=== PATIENT | male | born 1995 | race Hispanic/Latino ===

== ENCOUNTER 2017-11-18 22:48 | Emergency (ER) | payer OTHER ==
[2017-11-18 23:18] VITALS: RESP 18
--- NOTE | 2017-11-18 23:31 | ED PDOC ---
HPI: Chest Pain Time Seen by Provider: 11/18/17 23:03 Chief Complaint (Nursing): Chest Pain History Per: Patient History/Exam Limitations: no limitations Onset/Duration Of Symptoms: Days (7 days, 4 episodes) Current Symptoms Are (Timing): Intermittent Episodes Severity: Moderate Quality: Tightness Associated Symptoms: Diaphoresis, Other (dizziness). denies: Nausea, Syncope Exacerbating Factors: None Alleviating Factors: Rest Additional Complaint(s): 22-year-old male with no pertinent PMH presents with a 1 week history of intermittent palpitations and dizziness. He states the episodes are random but when he feels the palpitations start he gets nervous and the symptoms get worse. He has had 4 episodes of palpitations associated with dizziness and diaphoresis. Nothing aggravates or alleviates the episodes; they self resolve. He denies drugs, caffeine, alcohol, loss of consciousness, change in vision, nausea, vomiting, constipation, diarrhea, weight loss, change in diet or fluid intake, and any recent illness. PCP: None PMHx: Chronic nose bleeds SHx: None Social: Denies alcohol, illicit drugs, prescription drugs, and tobacco Meds: None Allergies: None FHx: Father: HTN, Mother: Hypotension Past Medical History Vital Signs: Last Vital Signs Temp 97.9 F 11/18/17 23:07 Pulse 74 11/18/17 23:07 Resp 18 11/18/17 23:07 BP 127/62 11/18/17 23:07 Pulse Ox 98 11/18/17 23:07 - Medical History PMH: No Chronic Diseases - Surgical History Surgical History: No Surg Hx - Family History Family History: States: Hypertension (father) - Social History Current smoker - smoking cessation education provided: No Alcohol: None Drugs: Denies - Home Medications Home Medications: Ambulatory Orders Medication Instructions Recorded RX: No Known Home Med 01/08/16 - Allergies Allergies/Adverse Reactions: Allergies Allergy/AdvReac Type Severity Reaction Status Date / Time No Known Allergies Allergy Verified 11/18/17 23:07 Review of Systems Constitutional: Positive for: Sweats. Negative for: Fever, Chills, Weakness, Weight loss Eyes: Negative for: Vision Change Cardiovascular: Positive for: Palpitations, Light Headedness. Negative for: Orthopnea, Edema Respiratory: Negative for: Cough, Shortness of Breath Gastrointestinal: Negative for: Nausea, Vomiting Genitourinary Male: Negative for: Dysuria, Frequency, Incontinence, Hematuria Musculoskeletal: Negative for: Neck Pain Skin: Negative for: Rash, Lesions Psych: Positive for: Anxiety Physical Exam - Physical Exam Appears: Positive for: Well, Non-toxic, No Acute Distress Head Exam: Positive for: ATRAUMATIC Skin: Positive for: Normal Color Neck: Positive for: Normal, Painless ROM Cardiovascular/Chest: Positive for: Regular Rate, Rhythm, Chest Non Tender Respiratory: Positive for: Normal Breath Sounds. Negative for: Wheezing, Respiratory Distress Extremity: Positive for: Normal ROM. Negative for: Tenderness Neurologic/Psych: Positive for: Alert, Oriented - Laboratory Results Result Diagrams: 11/19/17 00:09 11/19/17 00:09 - ECG ECG: Positive for: Interpreted By Me ECG Rhythm: Positive for: Normal QRS, Normal ST Segment O2 Sat by Pulse Oximetry: 98 - Progress ED Course And Treament: 22-year-old male with no pertinent PMH presents with a 1 week history of intermittent palpitations and dizziness. EKG, CBC, CMP, TSH, T4, Troponin all WNL. Patient cleared to return to home and recommend follow up with [facility] within 1 week. Disposition - Clinical Impression Clinical Impression: Anxiety - Patient ED Disposition Is Patient to be Admitted: No - Disposition Referrals: [facility] [place] [Outside] [facility] [Provider Group] Disposition Time: 01:22 Condition: IMPROVED Additional Instructions: Follow up with [facility] within 1 week. Forms: [facility] (Togolese) Print Language: [place]
[2017-11-19 00:12] LABS: HEMOGLOBIN 14.6 g/dL (12.0-18.0); MEAN CELL VOLUME 84.9 fl (80.0-94.0); MEAN CORPUSCULAR HEMOGLOBIN 28.6 pg (27.0-31.0); MEAN CORPUSCULAR HGB CONC 33.6 g/dL (33.0-37.0); RBC 5.11 Mil/uL (4.40-5.90); RED CELL DISTRIBUTION WIDTH 13.5 % (11.5-14.5); WHITE BLOOD COUNT 8.4 K/uL (4.8-10.8)
[2017-11-19 00:23] LABS: BLOOD UREA NITROGEN 16 mg/dl (9-20); CALCIUM 9.2 mg/dL (8.4-10.2); GFR NON-AFRICAN AMERICAN > 60
[2017-11-19 00:43] LABS: T4 8.07 ug/dl (5.5-11.0)
[2017-11-19 02:16] VITALS: BP 122/60; PULSE 81; TEMP 98.2; O2SAT 99
== END 2017-11-19 01:50 | disposition home or self-care (01) ==
LOC: H.ER 22:48
DX: F41.9 Anxiety disorder, unspecified (principal)